=== PATIENT | female | born 1960 | race Caucasian/White ===

== ENCOUNTER → 2016-12-26 | Outpatient (CLI) | payer OTHER | LOC: LAB 09:46 | DX: Z51.81 Encounter for therapeutic drug level monitoring (principal); Z79.01 Long term (current) use of anticoagulants | CPT/HCPCS: 36415; 85610 ==

== ENCOUNTER → 2017-01-02 | Outpatient (CLI) | payer OTHER | LOC: MRI 01-01 14:00 | DX: D32.9 Benign neoplasm of meninges, unspecified (principal) ==

== ENCOUNTER → 2017-02-05 | Outpatient (CLI) | payer OTHER | LOC: LAB 10:07 | DX: Z51.81 Encounter for therapeutic drug level monitoring (principal); I48.2 Chronic atrial fibrillation; Z79.01 Long term (current) use of anticoagulants | CPT/HCPCS: 36415; 85610 ==

== ENCOUNTER → 2020-09-25 | Outpatient (CLI) | payer OTHER | LOC: HEART 5 15:30 | DX: Z48.812 Encounter for surgical aftercare following surgery on the circulatory system (principal); I48.91 Unspecified atrial fibrillation; I08.2 Rheumatic disorders of both aortic and tricuspid valves | CPT/HCPCS: 93306 ==

== ENCOUNTER → 2020-11-16 | Outpatient (CLI) | payer OTHER | LOC: MAMO 10-06 09:00 | DX: Z12.31 Encounter for screening mammogram for malignant neoplasm of breast (principal); Z90.710 Acquired absence of both cervix and uterus | CPT/HCPCS: 77063; 77067 ==

== ENCOUNTER → 2021-10-02 | Outpatient (CLI) | payer OTHER ==
[2021-10-02 09:39] LABS: RED BLOOD COUNT 4.26 M/UL (4.00-5.10); WHITE BLOOD COUNT 6.9 K/UL (4.5-11.0)
[2021-10-03 12:15] LABS: A/G RATIO 1.6 (1.2-2.2); ALKALINE PHOSPHATASE, S 190 IU/L (44-121); ALT (SGPT) 36 IU/L (0-32); AST (SGOT) 28 IU/L (0-40); BILIRUBIN, TOTAL 0.5 mg/dL (0.0-1.2); BUN 20 mg/dL (6-24); BUN/CREATININE RATIO 22 (9-23); CALCIUM, SERUM 9.5 mg/dL (8.7-10.2); CARBON DIOXIDE, TOTAL 22 mmol/L (20-29); CHLORIDE, SERUM 106 mmol/L (96-106); CHOLESTEROL, TOTAL 128 mg/dL (100-199); CREATININE, SERUM 0.89 mg/dL (0.57-1.00); EGFR IF AFRICN AM 82 (>59); EGFR IF NONAFRICN AM 71 (>59); GLOBULIN, TOTAL 2.7 g/dL (1.5-4.5); HDL CHOLESTEROL 60 mg/dL (>39); LDL CHOLESTEROL CALC 51 mg/dL (0-99); LDL/HDL RATIO 0.9 ratio (0.0-3.2); MAGNESIUM 1.9 mg/dL (1.6-2.3); PROTEIN, TOTAL, SERUM 7.1 g/dL (6.0-8.5); SODIUM, SERUM 143 mmol/L (134-144); T. CHOL/HDL RATIO 2.1 ratio (0.0-4.4); TRIGLYCERIDES 91 mg/dL (0-149)
== END ==
LOC: LAB 09:09
PROVIDERS: Internal Medicine Cardiovascular Disease
DX: I48.91 Unspecified atrial fibrillation (principal)
CPT/HCPCS: 36415; 80053; 80061; 83735; 84443; 85025

== ENCOUNTER → 2021-10-09 | Outpatient (CLI) | payer OTHER | LOC: ECHO 10-03 10:30 | DX: I48.91 Unspecified atrial fibrillation (principal); I08.3 Combined rheumatic disorders of mitral, aortic and tricuspid valves; Z98.890 Other specified postprocedural states | CPT/HCPCS: ECHO; 93306 ==

== ENCOUNTER → 2021-10-15 | Outpatient (CLI) | payer OTHER | LOC: CT 07:52 | DX: D32.9 Benign neoplasm of meninges, unspecified (principal) | CPT/HCPCS: 36415; 70470; 82565; 84520; Q9967 ==

== ENCOUNTER → 2021-12-04 | Outpatient (CLI) | payer OTHER | LOC: MAMO 11-19 09:00 | DX: Z12.31 Encounter for screening mammogram for malignant neoplasm of breast (principal) | CPT/HCPCS: 77063; 77067 ==